=== PATIENT | male | born 1940 | race Caucasian/White ===

== ENCOUNTER → 2017-03-25 | Outpatient (CLI) | payer MEDICARE, OTHER ==
--- NOTE | 2017-03-25 16:08 | XR ---
Right foot HISTORY: Ganglion cyst 3 views of the right foot Degenerative change present at the metatarsophalangeal joint as well as the tarsometatarsal joints. S oft tissue mass noted at the dorsum of the foot shows low attenuation. There is a plantar calcaneus s pur. IMPRESSION: Suspect osteoarthritis. Indeterminate soft tissue mass, MRI fluid could be performed for additional evaluation. Plantar calcaneal spur.
== END | disposition home or self-care (01) ==
LOC: RADXRMAIN 14:22
PROVIDERS: ATTEND Podiatrist Foot Surgery
DX: M77.31 Calcaneal spur, right foot (principal); M67.471 Ganglion, right ankle and foot